=== PATIENT | male | born 1970 | race Caucasian/White ===

== ENCOUNTER 2017-03-05 09:56 | Day surgery (SDC) | payer OTHER ==
[2017-03-04 14:11] VITALS: BMI 48.0
[2017-03-05] MEDS ORDERED: PROPOFOL 20 ML ONE ×3 (11:02)
[2017-03-05 12:29] VITALS: TEMP 98.4
[2017-03-05 13:03] VITALS: BP 130/76; PULSE 92
--- NOTE | 2017-03-06 13:33 | PATH ---
Surgical Pathology Report Patient Name: ZINA LÓPEZ [facility]. Rec. #: [id number] /Age/Gender: 1970 (Age: 47) / M Account: [id number] Location: [facility]-ENDOSCOPY Taken: 03/05/2017 Received: 03/05/2017 Reported: 03/06/2017 Physicians: Ana Kline M.D. Specimen(s) Received A: BX DUODENUM 2ND PORTION AND BULB B: BX ANTRUM C: BX GE JUNCTION D: BX ESOPHAGUS Clinical History Dysphagia Schatzki's ring, hiatal hernia, GERD Final Diagnosis A. DUODENUM, SECOND PORTION AND BULB, BIOPSY: DUODENAL MUCOSA WITH NO PATHOLOGIC CHANGES. NO HISTOLOGIC EVIDENCE OF GLUTEN SENSITIVE ENTEROPATHY (CELIAC SPRUE) IDENTIFIED. B. STOMACH, ANTRUM, BIOPSY: GASTRIC ANTRAL AND FUNDIC MUCOSA WITH FOCAL MILD CHRONIC GASTRITIS. IMMUNOSTAIN FOR H. PYLORI IS NEGATIVE. C. GE JUNCTION, BIOPSY: SQUAMOUS MUCOSA WITH PAPILLOMATOSIS AND FOCAL INTRAEPITHELIAL EOSINOPHILS CONSISTENT WITH REFLUX ESOPHAGITIS. NO INTESTINAL METAPLASIA IDENTIFIED (NO SHERMAN'S IDENTIFIED). D. MID ESOPHAGUS, BIOPSY: SQUAMOUS EPITHELIUM WITH PAPILLOMATOSIS SUGGESTIVE OF REFLUX ESOPHAGITIS. NO EOSINOPHILIC ESOPHAGITIS IDENTIFIED. Electronically Signed Melo Ventura M.D. Gross Description A. Received in formalin, labeled "biopsy second portion duodenum and bulb" are 3 montejo, irregular portions of soft tissue averaging 0.4 cm. in greatest dimension. The specimens are submitted in toto in one cassette. B. Received in formalin, labeled "biopsy antrum" are 2 montejo, irregular portions of soft tissue measuring 0.2 and 0.4 cm. in greatest dimension. The specimens are submitted in toto in one cassette. C. Received in formalin, labeled "biopsy GE junction and Schatzki's ring" are 4 montejo, irregular portions of soft tissue ranging from 0.2-0.6 cm. in greatest dimension. The specimens are submitted in toto in one cassette. D. Received in formalin, labeled "biopsy mid esophagus" are 2 montejo, irregular portions of soft tissue measuring 0.3 and 0.5 cm. in greatest dimension. The specimens are submitted in toto in one cassette. DL/03/05/2017 saudi/03/05/2017
== END 2017-03-05 13:04 | disposition home or self-care (01) ==
LOC: JASU-ENDO 09:56
PROVIDERS: ATTEND Internal Medicine Gastroenterology
PROC: 0DB48ZX Excision of Esophagogastric Junction, Via Natural or Artificial Opening Endoscopic, Diagnostic (ICD-10-PCS; 2017-03-05)
PROC: 0DB68ZX Excision of Stomach, Via Natural or Artificial Opening Endoscopic, Diagnostic (ICD-10-PCS; 2017-03-05)
PROC: 0DB98ZX Excision of Duodenum, Via Natural or Artificial Opening Endoscopic, Diagnostic (ICD-10-PCS; 2017-03-05)
PROC: 0D748ZZ Dilation of Esophagogastric Junction, Via Natural or Artificial Opening Endoscopic (ICD-10-PCS; principal; 2017-03-05 11:00)
DX: K21.9 Gastro-esophageal reflux disease without esophagitis (principal); K44.9 Diaphragmatic hernia without obstruction or gangrene; K22.2 Esophageal obstruction
CPT/HCPCS: 88305-TC; 88342-TC

== ENCOUNTER 2019-08-11 07:36 | Day surgery (SDC) | payer OTHER ==
[2019-08-10 10:11] VITALS: BMI 50.5
[2019-08-11 09:31] VITALS: TEMP 97.6
[2019-08-11 10:16] VITALS: BP 113/75; PULSE 79
--- NOTE | 2019-08-12 15:07 | PATH ---
Surgical Pathology Report Patient Name: ZINA LÓPEZ [facility]. Rec. #: [id number] /Age/Gender: 1970 (Age: 49) / M Account: [id number] Location: [facility]-ENDOSCOPY Taken: 08/11/2019 Received: 08/11/2019 Reported: 08/12/2019 Physicians: Ana Kline M.D. Specimen(s) Received A: DESCENDING COLON B: RIGHT COLON POLYP Clinical History Screening colonoscopy Postoperative diagnosis: Colon polyps, diverticulosis Final Diagnosis A. DESCENDING COLON, POLYP, BIOPSY: HYPERPLASTIC POLYP. B. COLON, RIGHT, POLYP, BIOPSY: HYPERPLASTIC POLYP. Electronically Signed Sneha Kurtz M.D. Gross Description A. Received in formalin, labeled "descending colon polyp biopsy" is a montejo, irregular portion of soft tissue measuring 0.3 cm. in greatest dimension. The specimen is submitted in toto in one cassette. B. Received in formalin, labeled "right colon polyp biopsy" are 2 montejo, irregular portions of soft tissue measuring 0.3 and 0.5 cm. in greatest dimension. The specimens are submitted in toto in one cassette. DL/08/11/2019 saudi08/11/2019
== END 2019-08-11 10:10 | disposition home or self-care (01) ==
LOC: JASU-ENDO 07:36
PROVIDERS: ATTEND Internal Medicine Gastroenterology
PROC: 0DBM8ZX Excision of Descending Colon, Via Natural or Artificial Opening Endoscopic, Diagnostic (ICD-10-PCS; 2019-08-11)
PROC: 0DBK8ZX Excision of Ascending Colon, Via Natural or Artificial Opening Endoscopic, Diagnostic (ICD-10-PCS; principal; 2019-08-11 08:45)
DX: Z12.11 Encounter for screening for malignant neoplasm of colon (principal); D12.2 Benign neoplasm of ascending colon; D12.4 Benign neoplasm of descending colon; K57.30 Diverticulosis of large intestine without perforation or abscess without bleeding; K64.8 Other hemorrhoids; I10 Essential (primary) hypertension; E78.5 Hyperlipidemia, unspecified; G47.30 Sleep apnea, unspecified; K21.9 Gastro-esophageal reflux disease without esophagitis; E66.01 Morbid (severe) obesity due to excess calories; Z68.43 Body mass index [BMI] 50.0-59.9, adult

== ENCOUNTER 2024-12-17 05:23 | Day surgery (SDC) | payer OTHER ==
[2024-12-16 11:06] VITALS: BMI 35.2
[2024-12-17 09:32] VITALS: TEMP 98
[2024-12-17 11:17] VITALS: RESP 18
[2024-12-17 11:55] VITALS: BP 151/90; PULSE 74
== END 2024-12-17 11:55 | disposition home or self-care (01) ==
LOC: JASU-ENDO 05:23
PROVIDERS: ATTEND Internal Medicine Gastroenterology
PROC: 0DBN8ZX Excision of Sigmoid Colon, Via Natural or Artificial Opening Endoscopic, Diagnostic (ICD-10-PCS; principal; 2024-12-17 10:30)
DX: Z12.11 Encounter for screening for malignant neoplasm of colon (principal); D12.5 Benign neoplasm of sigmoid colon; K64.8 Other hemorrhoids; K57.30 Diverticulosis of large intestine without perforation or abscess without bleeding; Z86.0100 Personal history of colon polyps, unspecified
CPT/HCPCS: 88305-TC; 88342-TC